=== PATIENT | male | born 1985 | race Caucasian/White ===

== ENCOUNTER 2017-04-30 22:17 | Emergency (ER) | payer OTHER ==
[~2017-04-30] VITALS: Ht 182.9 cm; Wt 164.0 kg
[2017-04-30 22:20] VITALS: TEMP 36.8; Ht 182.9 cm; Wt 164.0 kg
[2017-04-30] MEDS ORDERED: KETOROLAC TROMETHAMINE 60 MG/2 ML VIAL IM STA (22:35)
[2017-04-30] MEDS ORDERED: OXYCODONE HCL IR 5 MG TAB (IMMEDIATE RELEASE) PO STA (22:35)
[2017-04-30] MEDS ORDERED: IBUP-1050 PO (22:46)
--- NOTE | 2017-04-30 23:22 | EMERGENCY ROOM VISIT NOTE ---
History First contact with patient: 22:21 Chief Complaint: BACK PAIN Stated Complaint: BACK, HIP PAIN History of Present Illness The patient is a 31 year old male who presents to the Emergency Room with complaints of low back pain for the past 6 months has been intermittent ranging in severity currently 8/10 and now radiates down his left leg. Movement makes it worse and nothing makes it better. Described as aching. He tried Motrin with no relief. He see Dr. Aquino in the past. He attended physical therapy did not continue because of work. No trauma. Patient denies chest pain, dyspnea, fever, chills, vomiting, diarrhea, urinary symptoms, IV drug abuse, leg weakness. 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 Patient has also seen a chiropractor with some improvement of symptoms. Review of Systems See HPI for pertinent positives & negatives. A total of 10 systems reviewed and were otherwise negative. Past Medical/Surgical History Asthma, back pain Social History Smoking Status: Never Smoker Smokeless Tobacco Use: No Alcohol Use: occasionally Drug Use: none Marital Status: Housing Status: lives with family Occupation Status: employed Current/Historical Medications Scheduled Ibuprofen (Advil), 200-600 MG PO Q4H Scheduled PRN Oxycodone Immediate Rel Tab (Roxicodone Ir), 1-2 TAB PO Q4H PRN for Severe Pain Physical Exam Vital Signs Date Time Temp Pulse Resp B/P (MAP) Pulse Ox O2 Delivery O2 Flow Rate FiO2 04/30/17 23:25 80 16 115/76 98 Room Air 04/30/17 22:20 36.8 91 18 180/123 97 Room Air Physical Exam VITALS: Vitals are noted on the nurse's note and reviewed by myself. Vital signs hypertensive GENERAL: Male, in no acute distress, nondiaphoretic, well-developed well- nourished. SKIN: The skin was without rashes, erythema, edema, or bruising. There is no tenting of the skin. Capillary reflex less than 2 seconds. HEAD: Normocephalic atraumatic. EARS: External auditory canals clear, tympanic membranes pearly lee without erythema or effusion bilaterally. EYES: Pupils equal round and reactive to light and accommodation. Conjunctivae without injection, sclerae without icterus. Extraocular movements intact. NOSE: Patent, turbinates without inflammation or discharge. MOUTH: Mucous membranes moist. Pharynx without erythema or exudate. Uvula midline. Airway patent. Tongue does not deviate. NECK: Supple without nuchal rigidity. No lymphadenopathy. No thyromegaly. Cervical spine is nontender. No JVD. HEART: Regular rate and rhythm without murmurs gallops or rubs. LUNGS: Clear to auscultation bilaterally without wheezes, rales or rhonchi. No dullness to percussion. No retractions or accessory muscle use. ABDOMEN: Positive bowel sounds x 4. Normal tympanic percussion. Soft, nontender, without masses or organomegaly. Capps sign negative. No guarding or rebound tenderness. No CVA tenderness MUSCULOSKELETAL: No muscle atrophy, erythema, or edema noted. No thoracic or lumbar tenderness on exam. Negative straight leg raise. Patient can walk on toes and heels. +2 patellar reflexes bilaterally. NEURO: Patient was alert and oriented to person place and time. Normal sensation to light and sharp touch. No focal neurological deficits. Medical Decision & Procedures Medications Administered Medications (Trade) Dose Ordered Sig/Andree Route Start Time Stop Time Status Last Admin Dose Admin Ketorolac Tromethamine (Toradol Inj) 60 mg NOW STAT IM 04/30/17 22:35 04/30/17 22:36 DC 04/30/17 22:44 60 MG Oxycodone HCl (Roxicodone Immediate Rel Tab) 5 mg NOW STAT PO 04/30/17 22:35 04/30/17 22:37 DC 04/30/17 22:43 5 MG ED Course Prior records/ancillary studies reviewed. Triage Nursing notes reviewed. Additional history obtained from family. The patient's history was concerning for back pain. Differential diagnosis: Etiologies such as musculoskeletal, disc herniation, fracture, aortic disease, metastatic disease, cord compression, discitis, infection, renal colic, gastrointestinal, acute exacerbation of chronic back pain, sciatica, cauda equina, as well as others were entertained. Physical findings: As above. No focal neurologic findings noted. ER treatment provided: Toradol, OxyIR On reassessment the patient felt better. Diagnostics interpreted by me: Imaging studies: CT L SPINE: No acute fracture or malalignment. Multilevel degenerative disc disease and facet arthropathy, greatest at L3-L4 and L4-L5 with moderate canal narrowing. Varying degrees of bilateral neuroforaminal narrowing, greatest at L5-S1 on the left. Radiologist: Rashad Siegel MD Study ready at 23:12 and initial results transmitted at 23:19 This appears to be consistent with lumbar radiculopathy. Patient was neurovascularly and neurologically intact. Patient was able to ambulate without difficulties. He was advised to follow-up with his back doctor in a few days or here in the ER sooner for severe pain, numbness, tingling, inability to walk, worsening signs or symptoms or as needed. The patient's physical examination and detailed history did not reveal any red flags for back pain such as those listed in the differential diagnosis. Therefore advanced diagnostics and consultations were felt to be unwarranted. pt was advised that his blood pressure is elevated today,he was advised to follow-up with family care for this. He was advised to follow-up for his high blood pressure with family care. He was given a list of family care doctors by the case management. By the evaluation outlined above emergent etiologies such as fracture, aortic disease, metastatic disease, infection, renal colic, gastrointestinal, cord compression, cauda equina, as well as others were deemed relatively unlikely. The pt informed about the findings as listed above. All questions were answered and pleased with the treatment. Return instructions were outlined and the patient was discharged in stable condition. Outpatient prescription management: Oxy IR 5mg 1-2 po Q4 hrs prn Referral: The patient was referred back to orthopedic spine and/or primary care physician for follow-up in 2 to 3 days for a recheck of the current condition. Medical Decision As above [place] Drug Monitoring Program Search Results: patient reviewed within database, no issues identified Medication Reconcilliation Current Medication List: was personally reviewed by ne Blood Pressure Screening Patient's blood pressure: Elevated blood pressure Blood pressure disposition: Elevated BP felt to be situational Impression Primary Impression: Lumbar radiculopathy Departure Information Dispostion Home / Self-Care Condition GOOD Prescriptions Oxycodone Immediate Rel Tab (ROXICODONE IR) 5 Mg Tab 1-2 TAB PO Q4H Y for Severe Pain, #15 TAB inital course Prov: Cristiana Goldstein ., [facility] 04/30/17 Referrals No Doctor, Assigned (PCP) Patient Instructions My [facility] Additional Instructions DO NOT drive, drink alcohol, operate machinery, or perform dangerous activities today. You were given medications in the ER that can affect your ability to safely function or operate a vehicle. Your blood pressure is elevated today, follow-up with family care for this. Oxycodone (OxyIR) 5mg: Take 1-2 pills every four hours for breakthrough pain. Avoid alcohol, operating machinery or dangerous equipment, working on ladders or roofs, DRIVING, or situations where being under the influence may be dangerous. It is recommended to use an arnm-oxf-mysifri stool softener such as Colace, 100mg twice daily while taking this medication to avoid constipation. Ibuprofen(Motrin, Advil) may be used for fever or pain. Use 600mg every six hours as needed. Take with food. Avoid using more than 2400mg in a 24 hour period. Do not use 2400mg per day for more than three consecutive days without physician direction. Prolonged inappropriate use can lead to stomach upset or ulcers. This medication can be taken if you need to drive, work, or perform activities which may be dangerous when taking narcotic pain medication. (AND/OR) Acetaminophen(Tylenol) may be used for fever or pain. Use 1000mg every six hours as needed. Avoid using more than 3000mg in a 24 hour period. This medication can be taken if you need to drive, work, or perform activities which may be dangerous when taking narcotic pain medication. Rest and avoid heavy lifting until your symptoms resolve and then gradually return to full activity. A good rule of thumb is if it hurts your back to perform a certain activity, then it should be avoided until you are healthy again. A heating pad, warm compresses, or a hot shower may help with tight muscles and can be done several times a day as needed. Continue current medications. Return to the ER immediately for any numbness, tingling, severe pain, loss of control of your bowels or bladder, inability to walk, or as needed. Follow up with your primary care physician/orthopedics spine within 3-5 days for a recheck of your current condition.
[2017-04-30] MEDS ORDERED: OXYC1TAB3 PO (23:23)
[2017-04-30 23:25] VITALS: BP 115/76; PULSE 80; O2SAT 98
[2017-04-30] MEDS ORDERED: OXYCODONE IR HOME PACK PO ONE (23:30)
--- NOTE | 2017-05-01 05:31 | DIAGNOSTIC IMAGING REPORT ---
LUMBAR SPINE WITHOUT CT DOSE: 2176.38 mGy.cm HISTORY: Back pain. Neuropathy. LBP down left leg TECHNIQUE: Multiaxial CT images of the lumbar spine were performed and reformatted in the sagittal and coronal plane without the use of contrast. A dose lowering technique was utilized adhering to the principles of ALARA. COMPARISON: None. FINDINGS: Vertebral body stature is unremarkable throughout. Mild degenerative disc changes throughout most prominent at L3-L4 and L4-L5. Moderate multifactorial narrowing of the spinal canal at L3-L4 and L4-L5. No evidence for major spinal stenotic change. Mild osteophytic narrowing of the neuroforamina bilaterally at multiple levels. IMPRESSION: Degenerative change throughout the entire lumbar spine considered moderate. Mild/moderate multifactorial narrowing of the spinal canal at L3-L4 and L4-L5. No acute process. The above report was generated using voice recognition software. It may contain grammatical, syntax or spelling errors. Electronically signed by: Jatin Mendez M.D. 05/01/2017 5:30 AM Dictated Date/Time: 05/01/2017 5:29 AM
== END 2017-04-30 23:39 | disposition home or self-care (01) ==
LOC: C.EDB 22:17 → C.EDA 23:39
DX: M54.16 Radiculopathy, lumbar region (principal); J45.909 Unspecified asthma, uncomplicated

== ENCOUNTER 2018-12-12 01:12 | Inpatient (IN) ==
[2018-12-12] MEDS ORDERED: MoRPHine SULFATE 4 MG/ML 1 ML CARP\\VIAL IV PRN ×2 (01:31→03:56)
[2018-12-12] MEDS ORDERED: ONDANSETRON INJ 2 MG/ML 2 ML VIAL IV STA (01:31)
[2018-12-12] MEDS ORDERED: SODIUM CHLORIDE 0.9% 1000ML 1,000 ML IV SCH (01:45)
[2018-12-12 02:02] LABS: Basophils # (auto) 0.02 K/uL (0-0.2); Basophils % (auto) 0.2 %; Eosinophils # (auto) 0.09 K/uL (0-0.5); Eosinophils % (auto) 1.1 %; Hematocrit (blood only) 43.5 % (42-52); Hemoglobin 14.6 g/dL (14.0-18.0); Immature Granulocytes # (auto) 0.03 K/uL (0.00-0.02); Immature Granulocytes % (auto) 0.4 %; Mean Corpuscular Hgb Conc 33.6 g/dL (32-36); Mean Corpuscular Volume 91.2 fL (80-100); Monocytes # (auto) 0.57 K/uL (0.11-0.59); Neutrophils # (auto) 4.78 K/uL (1.4-6.5); Neutrophils % (auto) 58.3 %; Platelet Count 216 K/uL (130-400); RDW Coefficient of Variation 13.3 % (11.5-14.5); RDW Standard Deviation 44.4 fL (36.4-46.3); Red Blood Count 4.77 M/uL (4.7-6.1); White Blood Count 8.19 K/uL (4.8-10.8)
[2018-12-12 02:21] LABS: Albumin Level 3.6 gm/dl (3.4-5.0); BUN Creatinine Ratio 19.4 (10-20); Calcium 8.6 mg/dl (8.5-10.1); Creatinine Clr Calc Pharmacy 166.3 ml/min; Est GFR (African American) 106.4; Est GFR (Non-African American) 91.8; Potassium 3.6 mmol/L (3.5-5.1)
[2018-12-12 02:23] LABS: Albumin Globulin Ratio 0.9 (0.9-2); Bilirubin,Total 0.2 mg/dl (0.2-1); Globulin 4.1 gm/dl (2.5-4.0); Total Protein 7.7 gm/dl (6.4-8.2)
--- NOTE | 2018-12-12 02:58 | Emergency Department Note ---
History of Present Illness General Chief complaint: Abdominal Pain Stated complaint: ABDOMINAL PAIN History of Present Illness Maximum Pain Intensity: 3 This 33-year-old presents to the ER complaining of abdominal pain Location: Right upper quadrant Quality: Severe Severity: Severe Duration: Past few hours Timing: Started a few hours ago Context: Pain persisted and patient came in Modifying factors: better with nothing; worse with palpation Patient denies prior history of similar symptoms. Patient had hamburgers and steak today. Patient denies chest pain, dyspnea, lower abdominal pain, urinary symptoms. Home Medications Home Medications Medication Instructions Recorded Confirmed Type No Known Home Medications 12/12/18 12/12/18 History Allergies Allergy/AdvReac Type Severity Reaction Status Date / Time No Known Allergies Allergy Unverified 12/12/18 01:59 Past Med/Surg History Medical History No acute medical problems Social History Feels Safe at Home: Yes Smoking Status: Never smoker Review of Systems All systems reviewed & are unremarkable except as noted in HPI & below Physical Exam Vital Signs Vital Signs - 24 hr 12/12/18 01:17 12/12/18 02:07 12/12/18 02:40 Temperature 37.1 C Temperature Source Oral Sepsis Recent Fever Within 48 Hours No Sepsis Action Taken by Nursing No Action Required Pulse Rate 86 Pulse Rate [Apical] 90 Respiratory Rate 20 18 Respiratory Effort / Characteristics Non-Labored Spontaneous Respiratory Depth Normal Normal Respiratory Pattern Regular Blood Pressure 178/94 H Blood Pressure [Right Arm] 112/61 Blood Pressure Mean 122 Blood Pressure Mean [Right Arm] 78 Blood Pressure Position Sitting Pulse Oximetry 99 96 Oxygen Delivery Method Room Air Room Air Room Air VITALS: Vitals are noted on the nurse's note and reviewed by myself. Vital signs stable. GENERAL: White male, in no acute distress, nondiaphoretic, well-developed well- nourished. SKIN: Capillary reflex less than 2 seconds. HEENT: Normocephalic. PERRLA. EOMI. Nares patent. Mucous membranes moist. Neck is supple without nuchal rigidity. HEART: Regular rate and rhythm without murmurs gallops or rubs. LUNGS: Clear to auscultation bilaterally without wheezes, rales or rhonchi. No retractions or accessory muscle use. ABDOMEN: Positive bowel sounds x 4. Normal tympanic percussion. Soft, tender to palpation right upper quadrant, without masses or organomegaly. No guarding or rebound tenderness. No CVA tenderness MUSCULOSKELETAL: No gross musculoskeletal defects. NEURO: Patient was alert and oriented to person place and time. Normal sensation to light and sharp touch. No focal neurological deficits. Course Administered Medications Morphine Sulfate (Morphine Sulfate) 4 mg IV Q15M PRN PRN Reason: Pain Stop: 12/26/18 01:30 Last Admin: 12/12/18 01:38 Dose: 4 mg Documented by: [id number] Discontinued Medications Sodium Chloride (Nss 1000ml) 1,000 mls @ 999 mls/hr IV .Q1H1M KAITLIN Stop: 12/12/18 02:45 Last Infusion: 12/12/18 02:08 Dose: 0 mls/hr Documented by: [id number] Admin: 12/12/18 01:38 Dose: 999 mls/hr Documented by: [id number] Ondansetron HCl (Zofran) 4 mg IV NOW STA Stop: 12/12/18 01:32 Last Admin: 12/12/18 01:38 Dose: 4 mg Documented by: [id number] Medical Decision Making Medical Records Attestation: I reviewed the patient's medical records. Home Medications Current Medication List: was personally reviewed by me Laboratory Data Attestation: I reviewed the patient's lab results. Result diagrams: 12/12/18 01:31 12/12/18 01:31 Lab Results 12/12/18 12/12/18 Range/Units 01:31 01:31 WBC 8.19 (4.8-10.8) K/uL RBC 4.77 (4.7-6.1) M/uL Hgb 14.6 (14.0-18.0) g/dL Hct 43.5 (42-52) % MCV 91.2 (80-100) fL MCH 30.6 (25-34) pg MCHC 33.6 (32-36) g/dL RDW Std Deviation 44.4 (36.4-46.3) fL RDW Coeff of Simeon 13.3 (11.5-14.5) % Plt Count 216 (130-400) K/uL MPV 10.0 (7.4-10.4) fL Immature Gran % (Auto) 0.4 % Neut % (Auto) 58.3 % Lymph % (Auto) 33.0 % [place] % (Auto) 7.0 % Eos % (Auto) 1.1 % Baso % (Auto) 0.2 % Immature Gran # (Auto) 0.03 H (0.00-0.02) K/uL Neut # (Auto) 4.78 (1.4-6.5) K/uL Lymph # (Auto) 2.70 (1.2-3.4) K/uL [place] # (Auto) 0.57 (0.11-0.59) K/uL Eos # (Auto) 0.09 (0-0.5) K/uL Baso # (Auto) 0.02 (0-0.2) K/uL Sodium 141 (136-145) mmol/L Potassium 3.6 (3.5-5.1) mmol/L Chloride 106 (98-107) mmol/L Carbon Dioxide 28 (21-32) mmol/L Anion Gap 7.0 (3-11) BUN 21 H (7-18) mg/dl Creatinine 1.06 (0.6-1.4) mg/dl Est Cr Clr Drug Dosing 166.3 ml/min Est GFR ( Amer) 106.4 Est GFR (Non-Af Amer) 91.8 BUN/Creatinine Ratio 19.4 (10-20) Glucose 110 H (70-99) mg/dl Calcium 8.6 (8.5-10.1) mg/dl Total Bilirubin 0.2 (0.2-1) mg/dl AST 22 (15-37) U/L ALT 35 (12-78) U/L Alkaline Phosphatase 62 (45-117) U/L Total Protein 7.7 (6.4-8.2) gm/dl Albumin 3.6 (3.4-5.0) gm/dl Globulin 4.1 H (2.5-4.0) gm/dl Albumin/Globulin Ratio 0.9 (0.9-2) Lipase 97 (73-393) U/L Imaging Data Attestation: I personally reviewed and interpreted this imaging study as follows: MDM Narrative Prior records/ancillary studies reviewed. Triage Nursing notes reviewed. Additional history obtained from family. The patient's history was concerning for abdominal pain. Differential diagnosis: Etiologies such as appendicitis, diverticulitis, PUD, biliary pathology, UTI, pancreatitis, obstruction, mesenteric ischemia, aortic pathology, infections, inflammatory bowel disease, renal colic, as well as others were entertained. Physical examination findings: As above. ER treatment provided: Morphine, Zofran IV On reassessment the patient felt better. Diagnostics interpreted by me: The labs revealed no leukocytosis. Mild hyperglycemia. Normal LFTs Imaging studies: US RUQ: Cholelithiasis with stone seen in the gallbladder neck. Gallbladder sludge is also seen. No other sonographic findings of acute cholecystitis. Hepatomegaly with fatty infiltration. No biliary dilatation. Radiologist: Kike Archibald M.D. Consultation: A consultation was placed with the surgeon Dr. Kiser. The case was discussed and diagnostics were reviewed. The patient was admitted to his service. Exam and history seem consistent with biliary colic with concerns for acute cholecystitis. Surgery was consulted and will admit the patient. They will see the patient in the morning. Antibiotics were started. Patient is agreeable treatment plan. LFTs are normal. No white count. By the evaluation outlined above emergent etiologies such as appendicitis, diverticulitis, PUD, UTI, pancreatitis, obstruction, mesenteric ischemia, aortic pathology, inflammatory bowel disease, renal colic, as well as others were deemed relatively unlikely. The pt informed about the findings as listed above. All questions were answered and pleased with the treatment. Case reviewed with my attending The chart was completed utilizing Relaborate Speech voice recognition software. Grammatical errors, random word insertions, pronoun errors, and incomplete sentences are an occassional consequence of this system due to software l imitations, ambient noise, and hardware issues. Any formal questions or concerns about the content, text, or information contained within the body of this dictation should be directly addressed to the physician medical billing assistant for clarification. Impression & Plan Biliary colic, Cholelithiases Discharge Plan Visit Data Chief Complaint: Abdominal Pain Stated Complaint: ABDOMINAL PAIN ED Provider: Yee Tomlinson ED Midlevel Provider: Cristiana Goldstein Discharge Problem: Biliary colic, Cholelithiases Patient Disposition: Being Evaluated by Surgeon Condition: Good Forms Stand Alone Forms: Call Back Authorization, [facility] [employer] Prescriptions Prescriptions: No Action No Known Home Medications RF: 0 Referrals Referrals: PCP,NO [Primary Care Provider] - Discharge Problem: Cholelithiases Qualifiers: Cholelithiasis location: gallbladder
[2018-12-12] MEDS ORDERED: cefOXitin 2,000 MG/60 ML BAG IV STA (03:07)
[2018-12-12] MEDS ORDERED: ONDANSETRON INJ 2 MG/ML 2 ML VIAL IV PRN ×2 (03:56→11:55)
[2018-12-12] MEDS: SODIUM CHLORIDE 0.9% 1000ML 1,000 ML IV SCH ×2 (04:04→21:23)
--- NOTE | 2018-12-12 06:56 | History & Physical Report ---
Date of Service December 12, 2018 Assessment & Plan (1) Biliary colic: This patient has cholelithiasis with sludge. He had an episode of biliary colic that is now resolved. We discussed the fact that he is going to need his gallbladder removed. We discussed doing it today versus going home and coming back as an outpatient. He would like to have it sooner rather than later. I explained to him the laparoscopic procedure and possible need to convert to an open procedure. I explained the possible complications. I answered his questions. Present on Admission?: Yes History of Present Illness Chief Complaint: Right upper quadrant pain Primary Care Provider: NO PCP This is a 33-year-old male who presented to the emergency room with a complaint of pain in the right upper quadrant. It began yesterday mid afternoon. He laid down to take a nap and when he woke up he had the discomfort. As the day progressed the intensity of the discomfort increased. He tried to drink some kaylee austin but that was of no help. He presented to the emergency room. He has never had pain identical to this in the past. It does not radiate through to his back. It is not associated with nausea, vomiting, change in bowel habits, change in urinary habits, melena, hematochezia, dysuria or hematuria. He had no fever. He was given IV analgesics in the emergency room at present time he is completely pain-free. 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 Other Information That Helps Us Care for You: No Feels Safe at Home: Yes Smoking Status: Former smoker Tobacco Type: cigarettes and smokeless tobacco Do You Dip or Chew Tobacco: No (Quit a year ago) Second Hand Exposure: No Tobacco Cessation Education Requested by Patient: No Hx Alcohol Use: No Hx Substance Use: No Review of Systems Review of Systems: All systems reviewed & are unremarkable except as noted in HPI & below Physical Exam Constitutional: + obese; no acute distress Eyes: + anicteric sclerae Neck: trachea midline Respiratory: normal respiratory effort, lungs clear to auscultation Cardiovascular: Rate/Rhythm: regular rate and regular rhythm Gastrointestinal (Abdomen): normal bowel sounds, soft, nontender, no hepatosplenomegaly Skin: no rashes, warm and dry Results & Data Vital Signs (Past 12 Hours) Vital Signs Temp Pulse Pulse Pulse Resp BP BP 12/12/18 04:11 36.8 C 91 H 19 133/75 12/12/18 03:40 94 H 18 118/62 12/12/18 02:40 90 18 112/61 12/12/18 01:17 37.1 C 86 20 178/94 H Pulse Ox 12/12/18 04:11 94 12/12/18 03:40 94 12/12/18 02:40 96 12/12/18 01:17 99 Laboratory Results 12/12/18 12/12/18 Range/Units 01:31 01:31 WBC 8.19 (4.8-10.8) K/uL RBC 4.77 (4.7-6.1) M/uL Hgb 14.6 (14.0-18.0) g/dL Hct 43.5 (42-52) % MCV 91.2 (80-100) fL MCH 30.6 (25-34) pg MCHC 33.6 (32-36) g/dL RDW Std Deviation 44.4 (36.4-46.3) fL RDW Coeff of Simeon 13.3 (11.5-14.5) % Plt Count 216 (130-400) K/uL MPV 10.0 (7.4-10.4) fL Immature Gran % (Auto) 0.4 % Neut % (Auto) 58.3 % Lymph % (Auto) 33.0 % [place] % (Auto) 7.0 % Eos % (Auto) 1.1 % Baso % (Auto) 0.2 % Immature Gran # (Auto) 0.03 H (0.00-0.02) K/uL Neut # (Auto) 4.78 (1.4-6.5) K/uL Lymph # (Auto) 2.70 (1.2-3.4) K/uL [place] # (Auto) 0.57 (0.11-0.59) K/uL Eos # (Auto) 0.09 (0-0.5) K/uL Baso # (Auto) 0.02 (0-0.2) K/uL Sodium 141 (136-145) mmol/L Potassium 3.6 (3.5-5.1) mmol/L Chloride 106 (98-107) mmol/L Carbon Dioxide 28 (21-32) mmol/L Anion Gap 7.0 (3-11) BUN 21 H (7-18) mg/dl Creatinine 1.06 (0.6-1.4) mg/dl Est Cr Clr Drug Dosing 166.3 ml/min Est GFR ( Amer) 106.4 Est GFR (Non-Af Amer) 91.8 BUN/Creatinine Ratio 19.4 (10-20) Glucose 110 H (70-99) mg/dl Calcium 8.6 (8.5-10.1) mg/dl Total Bilirubin 0.2 (0.2-1) mg/dl AST 22 (15-37) U/L ALT 35 (12-78) U/L Alkaline Phosphatase 62 (45-117) U/L Total Protein 7.7 (6.4-8.2) gm/dl Albumin 3.6 (3.4-5.0) gm/dl Globulin 4.1 H (2.5-4.0) gm/dl Albumin/Globulin Ratio 0.9 (0.9-2) Lipase 97 (73-393) U/L Diagnostic Findings Ultrasound of the gallbladder was obtained. There was a stone in the neck of the gallbladder and there was also sludge. There was no thickening of the gallbladder wall and no pericholecystic fluid. There was no ductal dilatation.
--- NOTE | 2018-12-12 07:01 | Ultrasound Report ---
ULTRASOUND RIGHT UPPER QUADRANT ABDOMEN CLINICAL HISTORY: Right upper quadrant abdominal pain. COMPARISON STUDY: No priors. TECHNIQUE: Real-time, grayscale, and color flow sonography of the right upper quadrant of the abdomen was performed. Images are reviewed in the transverse and longitudinal planes. FINDINGS: Liver: The liver is enlarged and demonstrates heterogeneously increased echotexture consistent with s evere hepatic steatosis. Note that this degrades acoustic penetration of the liver. There is no intra hepatic biliary ductal dilatation. The main portal vein is patent. Gallbladder: Shadowing calcified gallstones are identified. There is no gallbladder wall thickening o r pericholecystic fluid. A sonographic Capps's sign is reportedly absent. The common bile duct measu res up to 0.4 cm in diameter. Pancreas: Not well visualized due to overlying bowel gas. Right kidney: Survey images of the right kidney demonstrate normal size and echotexture. There is no hydronephrosis. Ascites: None. IMPRESSION: 1. Cholelithiasis without sonographic evidence of acute cholecystitis. 2. Hepatomegaly and severe hepatic steatosis. Electronically signed by: Robert Redmond M.D. 12/12/2018 7:00 AM
[2018-12-12] MEDS: cefOXitin 2,000 MG in DEXTROSE 5% 50 ML IV SCH ×3 (09:25→21:24)
[2018-12-12] MEDS ORDERED: ePHEDrine sulfate 50 MG/ML AMP IV PRN (11:55)
[2018-12-12] MEDS ORDERED: fentaNYL citrate 100 MCG/2 ML VIAL IV PRN (11:55)
[2018-12-12] MEDS ORDERED: MEPERIDINE HCL 25 MG/ML CARP IV PRN (11:55)
[2018-12-12] MEDS ORDERED: HYDROmorphone INJ 1 MG/ML SYRINGE IV PRN (11:55)
[2018-12-12] MEDS ORDERED: ATROPINE SULFATE 0.1 MG/ML 10ML SYR IV PRN (11:55)
[2018-12-12] MEDS ORDERED: LABETALOL HCL IV 5 MG/ML 20ML IV PRN (11:55)
[2018-12-12] MEDS ORDERED: PHENYLEPHRINE 100MCG/ML 5ML SYR IV PRN (11:55)
[2018-12-12] MEDS ORDERED: SUCCINYLCHOLINE CHLORIDE 20 MG/ML 10 ML VIAL ONE (12:00)
[2018-12-12] MEDS ORDERED: ROCURONIUM BROMIDE 10 MG/ML 5 ML VIAL ONE (12:00)
[2018-12-12] MEDS ORDERED: DEXAMETHASONE SOD INJ 4 MG/ML VIAL ONE (12:00)
[2018-12-12] MEDS ORDERED: ONDANSETRON INJ 2 MG/ML 2 ML VIAL ONE ×2 (12:00→14:47)
[2018-12-12] MEDS ORDERED: LIDOCAINE HCL 2% 2 ML VIAL/AMP(20MG/ML) INFIL ONE (12:00)
[2018-12-12] MEDS ORDERED: PROPOFOL IV EMULSION 10 MG/ML 20 ML VIAL IV ONE (12:00)
[2018-12-12] MEDS ORDERED: MIDAZOLAM HCL 1 MG/ML 2ML VIAL ONE (12:01)
[2018-12-12] MEDS ORDERED: fentaNYL citrate 100 MCG/2 ML VIAL ONE ×2 (12:01→15:47)
--- NOTE | 2018-12-12 12:03 | Anesthesiology Consultation ---
Date of Service December 12, 2018 Assessment & Plan (1) Encounter for pre-operative examination: Chart Review Chart Review: Acceptable Risk for Surgery and Patient NOT seen in Pre Admission Testing Consults Requested none History Surgery Operation Date: 12/12/18 12:30 Proposed Procedures p Laparoscopic Cholecystectomy - Jatin Kiser MD Height/Weight Height: 6 ft Weight: 180.7 kg Allergies Allergy/AdvReac Type Severity Reaction Status Date / Time No Known Allergies Allergy Unverified 12/12/18 01:59 Medications Home Medications Medication Instructions Recorded Confirmed Last Taken No Known Home Medications 12/12/18 12/12/18 Unknown Active Medications Generic Name Dose Route Start Last Admin Trade Name Freq PRN Reason Stop Dose Admin Sodium Chloride 1,000 mls @ 100 mls/hr 12/12/18 03:56 12/12/18 11:16 Nss 1000ml IV 01/11/19 03:55 0 mls/hr .Q10H [facility] Infusion Cefoxitin Sodium 2,000 mg/ 60 mls @ 100 mls/hr 12/12/18 10:00 12/12/18 10:01 Dextrose IV 12/13/18 09:59 Infused Q6H [facility] Infusion NPO Date Last Intake of Fluids: 12/11/18 Time Last Intake of Fluids: 23:30 Date Last Intake of Solids: 12/11/18 Time Last Intake of Solids: 19:00 Past Medical History Medical History Morbid obesity No acute medical problems Past Surgical History Surgical History No history of previous surgery Social History Smoking Status: Former smoker tobacco type: cigarettes and smokeless tobacco Do You Dip or Chew Tobacco: No (Quit a year ago) Hx Alcohol Use: No Hx Substance Use: No Physical Exam Vital Signs Last Vital Signs Temp 36 C L 12/12/18 11:19 Pulse 80 12/12/18 11:19 Resp 18 12/12/18 11:19 BP 121/73 12/12/18 11:19 Pulse Ox 94 12/12/18 11:19 Testing Other Testing Laboratory Tests 12/12/18 12/12/18 01:31 01:31 WBC 8.19 Hgb 14.6 Hct 43.5 Plt Count 216 Sodium 141 Potassium 3.6 Chloride 106 Carbon Dioxide 28 BUN 21 H Creatinine 1.06 Glucose 110 H
[2018-12-12] MEDS ORDERED: BUPIVACAINE 0.5 % 5 MG/1 ML MPF 30ML VIAL ONE (13:32)
[2018-12-12] MEDS ORDERED: HEPARIN (PORCINE) 1000 UNIT/ML 10 ML (CATH LAB USE ONLY) ONE (13:32)
[2018-12-12] MEDS ORDERED: CEFAZOLIN 250 MG/ML 1 GM VIAL ONE (13:33)
[2018-12-12] MEDS ORDERED: CONRAY 60% 50 ML VIAL ONE (13:33)
[2018-12-12] MEDS ORDERED: ACETAMINOPHEN 1000 MG/100 ML IV IV ONE (13:34)
[2018-12-12] MEDS ORDERED: GLYCOPYRROLATE 0.2 MG/ML VIAL ONE (14:47)
[2018-12-12] MEDS ORDERED: NEOSTIGMINE METHYLSULFATE 5 MG/5 ML SYR ONE (14:47)
[2018-12-12] MEDS ORDERED: KETOROLAC 30 MG/ML VIAL ONE (15:24)
--- NOTE | 2018-12-12 15:49 | Post Operative Brief Note ---
Immediate Post Op Note v1 Date of Surgery December 12, 2018 Pre & Post Diagnosis Operation Date: 12/12/18 12:30 Pre-Op Diagnosis: billiary colic Post-Op Diagnosis: billiary colic, cholelithiasis Procedure Operation Date: 12/12/18 12:30 Actual Procedures p Laparoscopic Cholecystectomy(Not Applicable) - Jatin Kiser MD Surgeon Jatin Kiser MD [place] Demetra Grover PA-C Estimated Blood Loss 5 Findings Consistent with Post-Op Diagnosis Specimens Gallbladder and contents Anesthesia Type General Complications none
--- NOTE | 2018-12-12 16:46 | Anesthesiology Progress Note ---
Date of Service December 12, 2018 Anesthesia Post Procedure Vital Signs Vital Signs: Temp Pulse Pulse Pulse Resp BP BP 12/12/18 16:35 75 14 111/75 12/12/18 16:25 75 14 123/77 12/12/18 16:15 81 16 121/77 12/12/18 16:07 36.2 C L 77 18 133/68 12/12/18 11:19 36 C L 80 18 12/12/18 08:13 36.7 C 98 H 16 12/12/18 04:11 36.8 C 91 H 19 12/12/18 03:40 94 H 18 118/62 12/12/18 02:40 90 18 12/12/18 01:17 37.1 C 86 20 178/94 H BP Pulse Ox 12/12/18 16:35 92 12/12/18 16:25 95 12/12/18 16:15 95 12/12/18 16:07 94 12/12/18 11:19 121/73 94 12/12/18 08:13 98/60 L 94 12/12/18 04:11 133/75 94 12/12/18 03:40 94 12/12/18 02:40 112/61 96 12/12/18 01:17 99 Pain Intensity Right Abdomen: Pain Intensity: 2 Transfer of Care Handoff Completed per policy Notes Mental Status: alert / awake / arousable Patient Amnestic to Procedure: Yes Nausea / Vomiting: adequately controlled Pain: adequately controlled Airway Patency, RR, SpO2: stable & adequate BP & HR: stable & adequate Hydration State: stable & adequate Anesthetic Complications: no major complications apparent
[2018-12-12] MEDS ORDERED: OXYCODONE/ACETAMINOPHEN 5mg/325mg TAB PO PRN (17:00)
--- NOTE | 2018-12-12 22:35 | Operative Report ---
DATE OF OPERATION: 12/12/2018 PREOPERATIVE DIAGNOSIS: Biliary colic, cholelithiasis. POSTOPERATIVE DIAGNOSIS: Biliary colic, cholelithiasis. PROCEDURE: Laparoscopic cholecystectomy. SURGEON: Jatin Kiser MD GAS EXAMINER: Demetra Grover PA-C FINDINGS: The gallbladder had some adhesion of the omentum to it. It was not dilated. There were stones within the lumen. The infundibulum was redundant and extended down over the cystic duct and cystic artery. There was adhesion of the duodenum to the infundibulum and neck area of the gallbladder. The cystic duct was not dilated. TECHNIQUE: The patient was given a general anesthetic and the area was prepped and draped in the usual sterile fashion. The patient's body habitus made the procedure difficult. A site approximately 4 cm above the umbilicus was chosen for the midline incision. Transverse incision was made, carried down through the subcutaneous tissue to the fascia which was grasped with 2 Tamir clamps and incised between. The peritoneum was identified, incised, and the introducer was placed bluntly. The abdomen was then insufflated to a pressure of 15 mmHg with carbon dioxide. The upper midline, midclavicular and anterior axillary introducers were then placed under direct vision through skin incisions. The patient was placed in reverse Trendelenburg position and the gallbladder was grasped. The adhesions of the omentum were taken down using blunt and cautery dissection until I reached the adhesions of the duodenum and those were all taken down bluntly without using cautery to avoid thermal injury. I then was able to identify the infundibulum and elevated and opened the peritoneum on the lateral side. I divided the lateral attachments up along the neck and infundibulum of the gallbladder. I then worked anteriorly. There was a thickened fatty area that was clamped and divided, which allowed for better visualization of the infundibulum. I then worked on the medial side of the infundibulum and opened the peritoneum and divided the attachments of the gallbladder away from that medial side up along up to the body. I then was able to further dissect the infundibulum and had to elevate that and it was at the junction of that and the body on the posterior side where the cystic duct was identified. It was skeletonized on each side and then posteriorly. There was a small vessel that was clamped and divided, which allowed for better mobility. The gallbladder was then dissected away near the fundus on the medial side allowing for even better mobilization and better identification and confirmation of the cystic duct gallbladder junction. Two clips were placed on the proximal cystic duct, one near the junction with the gallbladder and it was divided. That exposed the cystic artery. It was isolated, clamped, and divided. In dissecting and skeletonizing the cystic duct, there was a thickened lymphatic along the medial side that was isolated away, clipped, and divided as well. The gallbladder was then peeled off the liver bed using electrocautery. It was placed into an Endobag and brought out through the upper midline incision. I had to enlarge the openings of the layers in that incision in order to extract the gallbladder within the bag, but that was performed. That introducer was replaced. The liver edge was elevated. The subdiaphragmatic and subhepatic spaces were irrigated, the irrigation was removed. The gallbladder bed of the liver was inspected. There was no bleeding. The previously placed clips were inspected and were intact. The gas was allowed to escape and the introducers were removed. The fascia of the umbilical and upper midline introducer sites was closed with interrupted 0 Vicryl. The skin of all the incisions was closed with 4-0 Monocryl in either an interrupted or running subcuticular fashion. The skin was anesthetized with 0.5% Marcaine. The skin was cleansed, dried, benzoin placed, Steri-Strips applied. Estimated blood loss was 5 mL. Sponge, needle and instrument counts were correct prior to closure. The patient tolerated the surgical procedure without complication and was transferred to recovery. I attest to the content of the Intraoperative Record and any orders documented therein. Any exception s are noted below.
[2018-12-13] MEDS: cefOXitin 2,000 MG in DEXTROSE 5% 50 ML IV SCH (03:30)
[2018-12-13] MEDS: SODIUM CHLORIDE 0.9% 1000ML 1,000 ML IV SCH ×2 (07:06→08:02)
--- NOTE | 2018-12-13 08:10 | Anesthesiology Progress Note ---
Date of Service December 13, 2018 Anesthesia Post Procedure Vital Signs Vital Signs: Temp Pulse Pulse Pulse Resp BP BP 12/13/18 07:24 36.7 C 79 20 112/56 L 12/13/18 03:45 36.8 C 74 16 93/57 L 12/12/18 22:49 36.7 C 88 16 104/67 12/12/18 20:18 36.9 C 96 H 16 124/75 12/12/18 19:05 36.9 C 90 17 118/71 12/12/18 18:00 37.1 C 89 20 115/75 12/12/18 17:30 36.6 C 80 16 113/76 12/12/18 17:00 37.2 C 76 14 112/74 12/12/18 16:45 36.2 C L 77 16 118/76 12/12/18 16:35 75 14 111/75 12/12/18 16:25 75 14 123/77 12/12/18 16:15 81 16 121/77 12/12/18 16:07 36.2 C L 77 18 133/68 12/12/18 11:19 36 C L 80 18 121/73 12/12/18 08:13 36.7 C 98 H 16 98/60 L Pulse Ox 12/13/18 07:24 92 12/13/18 03:45 93 12/12/18 22:49 92 12/12/18 20:18 93 12/12/18 19:05 94 12/12/18 18:00 94 12/12/18 17:30 98 12/12/18 17:00 96 12/12/18 16:45 95 12/12/18 16:35 92 12/12/18 16:25 95 12/12/18 16:15 95 12/12/18 16:07 94 12/12/18 11:19 94 12/12/18 08:13 94 Notes Mental Status: alert / awake / arousable and participated in evaluation Nausea / Vomiting: adequately controlled Pain: adequately controlled Airway Patency, RR, SpO2: stable & adequate BP & HR: stable & adequate Hydration State: stable & adequate
--- NOTE | 2018-12-13 11:59 | Surgery Progress Note ---
Date of Service December 13, 2018 Assessment & Plan (1) Biliary colic: POD # 1 s/p laparoscopic cholecystectomy -vitals stable, afebrile - preop pain resolved - post op pain minimal - no n/v, tolerating clears - urinating without difficulty Plan: Okay for discharge home today Advance to regular diet for lunch d/c IV fluids, hep lock IV Discharge instructions reviewed Rx for Percocet prn pain f/u surgical office in [address] Kiser who agrees with above Subjective feeling good has not had any percocet today so far, minimal pain no n/v, tolerating clear liquids urinating without difficulty no chest pain/sob Physical Exam Constitutional: WD/WN, vitals as above + morbidly obese Respiratory: normal respiratory effort; no respiratory distress Gastrointestinal (Abdomen): normal bowel sounds, soft, nontender, no hepatosplenomegaly Inspection/Auscultation: abdomen not distended Percussion/Palpation: abdomen soft; abdomen nontender, no guarding and abdomen not rigid Skin: no rashes, warm and dry Psychiatric: A+Ox3, euthymic affect Results & Data Vital Signs (Past 12 Hours) Vital Signs Temp Pulse Resp BP Pulse Ox 12/13/18 11:14 36.8 C 81 20 116/75 96 12/13/18 07:24 36.7 C 79 20 112/56 L 92 12/13/18 03:45 36.8 C 74 16 93/57 L 93
--- NOTE | 2018-12-14 13:07 | Discharge Summary ---
Date of Service December 14, 2018 Admission HPI Per Admitting Provider This is a 33-year-old male who presented to the emergency room with a complaint of pain in the right upper quadrant. It began yesterday mid afternoon. He laid down to take a nap and when he woke up he had the discomfort. As the day progressed the intensity of the discomfort increased. He tried to drink some kaylee austin but that was of no help. He presented to the emergency room. He has never had pain identical to this in the past. It does not radiate through to his back. It is not associated with nausea, vomiting, change in bowel habits, change in urinary habits, melena, hematochezia, dysuria or hematuria. He had no fever. He was given IV analgesics in the emergency room at present time he is completely pain-free. Principal Diagnosis acute calculous cholecystitis Discharge Data Allergies Allergy/AdvReac Type Severity Reaction Status Date / Time No Known Allergies Allergy Unverified 12/12/18 01:59 Consultations 12/12/18 03:10 ED Decision to Admit Stat Procedures Performed Operation Date: 12/12/18 12:30 Actual Procedures p Laparoscopic Cholecystectomy(Not Applicable) - Jatin Kiser MD Ordered Studies 12/12/18 01:31 gallbladder Urgent Hospital Course (1) Biliary colic: Patient was admitted from emergency department to medical/surgical floor and started on IV fluids, IV Pain management as needed, IV ZOfran, IV Antibiotics, and kept NPO. Patient was taken to operating room for laparoscopic cholecystectomy by Dr. Kiser. Patient was found to have acute cholecystitis. Patient tolerated procedure well without any difficulties. Transferred to recovery and then back to medical/surgical floor for post operative care. Diet advanced to clear liquids, PO Percocet and IV morphine prn pain, activity as tolerated, scds for dvt prophylaxis. Patient evaluated on POD # 1 vitals stable, afebrile, preop pain resolved, post op pain minimal, no n/v, tolerating clears, urinating without difficulty. Diet was advanced to regulard, IV Fluids discontinued, advised to ambulate hallway. Patient was discharged home on POD # 1 in stable condition. Total Time Total Time Spent Total Time Spent (In Minutes): 30 Total Time Includes: Examination of the Patient, Discharge Planning and Medication Reconciliation Discharge Plan Discharge Items Patient Disposition: Home - Self-Care Reason For Visit: ACUTE CHOLECYSTITIS Discharge Diagnosis: Gallstones Acute cholecystitis Condition: Good Discharge Goals: Decrease discomfort and Improve function Activity: Per 'Additional Instructions' section Non-emergency contact: Surgeon Call non-emergency contact if: your pain is not controlled, your pain is worsening, your pain is concerning for you, you have a fever, your temperature is above 101, your wound has increased redness, your wound has increased drainage and your wound pain has increased Follow-up/Referrals: PCP,NO [Primary Care Provider] - Diet: Regular Addtl Provider Instructions: Post-Surgical ~Discharge Instructions Activity Recommendations: - lifting limitation: (10 pounds for 2 weeks), - exercise/sex/sports limit: (nonstrenuous for 2 weeks), - driving or machine use limit: (none for 1 week), - Shower/bathe limit: (may shower beginning tomorrow) Diet: - Resume previous diet SPECIAL CARE INSTRUCTIONS: - May shower in 24 hours. Let water run over area and pat dry. - Leave steri strips on for one week. - Call the surgeon's office with any questions or concerns - - (ex. temperature higher than 101 degrees F, excessive bleeding or pain). MEDICATIONS: - Resume previous medications unless instructed otherwise by your surgeon. - Ibuprofen 600 mg every 6 hours with food - May take extra strength Tylenol (650 mg) every 6 hours as needed for mild pain. May alternate with Ibuprofen. - Percocet 1 every 4 hours, as needed for pain FOLLOW UP VISIT: - If not already scheduled, please call the office to schedule a two week follow-up appointment. Office number Prescriptions: New oxycodone-acetaminophen 5-325 mg tablet 1 tab PO Q4H PRN (Reason: pain) Qty: 10 RF: 0 No Action No Known Home Medications RF: 0 Stand-Alone Forms: Call Back Authorization, [facility] [place] [employer], Opioid Pain Management Discharge Orders: Discharge Order (Routine); Ordered 12/13/18 Ordered By: Demetra Grover Admission Data Admit Date/Time: 12/12/18 03:19 Attending Provider: Jatin Kiser Admit Provider: Jatin Kiser Primary Care Provider: PCP,NO Other Providers: Jatin Kiser Service: Surgical Services Other Interventions: Discharge Summary Assessment (RN) Last Done: 12/13/18 12:04 Pending Studies at Discharge: Yes (Gallbladder pathology, will be reviewed at follow-up visit) DC Date/Time DO NOT enter until pt leaves facility: 12/13/18 13:19
--- NOTE | 2018-12-15 12:44 | Coding Query ---
BMI To promote full compliance with coding requirements relating to patient care, physician participation is requested in all cases of ingredient scaler helper uncertainty. Please assist us with the question(s) below: Please place an X within the parenthesis (x). If other, please document: BMI 54 was documented in this record for this patient. If the BMI is significant, please check the box that provides a more specific associated diagnosis: ( ) Overweight/Obese ( x) Obesity ( ) Morbid obesity ( ) Obesity Hypoventilation Syndrome (OHS) ( ) Heathy weight, not significant ( ) Underweight/Thin ( ) Other, please specify Thank you Sophie WHYTE
== END 2018-12-13 13:19 | disposition home or self-care (01) | DRG 418 ==
LOC: ED 01:12 → 3W 03:19